=== PATIENT | female | born 1935 | race Caucasian/White ===

== ENCOUNTER 2021-05-26 15:08 | Inpatient (IN) | payer MEDICARE ==
[~2021-05-26] VITALS: Ht 147.3 cm; Wt 46.8 kg
[2021-05-26 15:56] LABS: BASOPHILS % (AUTO) 1.2 % (0.0-2.0); EOSINOPHILS % (AUTO) 2.9 % (1.0-6.0); HEMATOCRIT 29.9 % (36-46); LYMPHOCYTES % (AUTO) 16.5 % (22.0-44.0); MEAN CORPUSCULAR HEMOGLOBIN 26.7 pg (26.0-34.0); MEAN CORPUSCULAR HGB CONC 33.3 G/dL (31.0-37.0); MEAN CORPUSCULAR VOLUME 80 fL (80-100); MONOCYTES # (AUTO) 0.7 K/uL (0.1-1.0); MONOCYTES % (AUTO) 11.3 % (2.0-9.0); NEUTROPHILS % (AUTO) 68.1 % (40.0-70.0); PLATELET COUNT (AUTO) 369 K/uL (150-450); RED BLOOD CELL COUNT(AUTO) 3.72 MIL/uL (4.00-5.20); RED CELL DISTRIBUTION WIDTH 16.6 % (11.5-14.5)
[2021-05-26 16:10] LABS: ANION GAP 8 mmol/L (8-16); CALCIUM, TOTAL 8.8 mg/dL (8.8-10.5); CARBON DIOXIDE 27 mmol/L (22-29); CHLORIDE 104 mmol/L (98-107); CREATININE 0.72 mg/dL (0.60-1.30); GLUCOSE,RANDOM 85 mg/dL (70-110); POTASSIUM 4.1 mmol/L (3.5-5.1); SODIUM SERUM 139 mmol/L (136-145); UREA NITROGEN, BLOOD 21 mg/dL (7-18)
[2021-05-26 16:11] LABS: PROTHROMBIN TIME 10.9 SEC (9.4-11.6)
[2021-05-26 16:16] LABS: ALANINE AMINOTRANSFERASE 13 U/L (12-78); ALBUMIN 2.5 g/dL (3.4-5.0); ALKALINE PHOSPHATASE 100 U/L (46-116); ASPARTATE AMINOTRANSFERASE 17 U/L (15-37); BILIRUBIN,TOTAL 0.2 mg/dL (0.1-1.0); CREATINE KINASE, TOTAL ONLY 42 U/L (26-192); GLOMERULAR FILTR. RATE CALC > 60 mL/min (>60); TOTAL PROTEIN, SERUM 6.8 g/dL (6.4-8.2)
[2021-05-26 16:37] LABS: B-TYPE NATRIURETIC PEPTIDE 82 pg/mL (0-100)
[2021-05-26 16:56] LABS: COVID AG,FIA SOURCE NASOPHARYNGEAL
[2021-05-26] MEDS ORDERED: HYDROCODONE/ACETAMINOPHEN 5-325 MG TABLET PO PRN (20:45)
[2021-05-26] MEDS ORDERED: ONDANSETRON HCL 4 MG/2 ML VIAL IVP PRN (20:45)
[2021-05-26] MEDS ORDERED: BISACODYL 10 MG RECTAL RECTAL SUPPOSITORY PR PRN (20:45)
[2021-05-26] MEDS ORDERED: IPRATROPIUM BROMIDE 0.5 MG/2.5 ML NEB SOLUTION NEB PRN (20:45)
[2021-05-26] MEDS ORDERED: ACETAMINOPHEN 325 MG TABLET PO PRN (20:45)
[2021-05-26] MEDS ORDERED: ALBUTEROL SULFATE 2.5 MG/0.5 ML NEB SOLUTION NEB PRN (20:45)
[2021-05-26] MEDS ORDERED: MORPHINE SULFATE 2 MG/ML SYRINGE IVP PRN (20:45)
[2021-05-26] MEDS ORDERED: MAGNESIUM HYDROXIDE SUSPENSION 30 ML UDCUP PO PRN (20:45)
[2021-05-26] MEDS ORDERED: ZOLPIDEM TARTRATE 5 MG TABLET PO PRN (20:45)
[2021-05-26] MEDS: DOCUSATE SODIUM 100 MG CAPSULE PO SCH ×2 (21:00→21:26)
[2021-05-26] MEDS: HEPARIN SODIUM,PORCINE 5,000 UNITS/ML VIAL SQ SCH (23:52)
[2021-05-27] MEDS: DOCUSATE SODIUM 100 MG CAPSULE PO SCH ×2 (08:59→21:56)
[2021-05-27] MEDS: PANTOPRAZOLE SODIUM 40 MG/VIAL IVP SCH (08:59)
[2021-05-27] MEDS: HEPARIN SODIUM,PORCINE 5,000 UNITS/ML VIAL SQ SCH ×2 (08:59→15:12)
[2021-05-27 21:31] VITALS: BP 153/89
[2021-05-27 23:56] VITALS: BP 117/90
[2021-05-28 05:32] VITALS: BP 126/74
[2021-05-28 07:24] VITALS: BP 132/75
[2021-05-28] MEDS: HEPARIN SODIUM,PORCINE 5,000 UNITS/ML VIAL SQ SCH ×4 (08:11→23:49)
[2021-05-28] MEDS: PANTOPRAZOLE SODIUM 40 MG/VIAL IVP SCH (08:11)
[2021-05-28] MEDS: DOCUSATE SODIUM 100 MG CAPSULE PO SCH ×2 (08:11→21:05)
[2021-05-28 11:24] VITALS: BP 116/67
[2021-05-28 15:33] LABS: EOSINOPHILS % (AUTO) 2.6 % (1.0-6.0); HEMATOCRIT 30.3 % (36-46); HEMOGLOBIN 10.2 g/dL (12.0-16.0); LYMPHOCYTES # (AUTO) 1.4 K/uL (1.0-4.8); LYMPHOCYTES % (AUTO) 21.8 % (22.0-44.0); MEAN CORPUSCULAR HEMOGLOBIN 26.6 pg (26.0-34.0); MEAN CORPUSCULAR HGB CONC 33.7 G/dL (31.0-37.0); MEAN CORPUSCULAR VOLUME 79 fL (80-100); MONOCYTES # (AUTO) 0.8 K/uL (0.1-1.0); MONOCYTES % (AUTO) 12.4 % (2.0-9.0); NEUTROPHILS # (AUTO) 3.9 K/uL (1.8-7.7); NEUTROPHILS % (AUTO) 62.2 % (40.0-70.0); PLATELET COUNT (AUTO) 383 K/uL (150-450); RED BLOOD CELL COUNT(AUTO) 3.85 MIL/uL (4.00-5.20); RED CELL DISTRIBUTION WIDTH 16.6 % (11.5-14.5)
[2021-05-28 15:39] LABS: ANION GAP 7 mmol/L (8-16); CALCIUM, TOTAL 8.8 mg/dL (8.8-10.5); CARBON DIOXIDE 26 mmol/L (22-29); CHLORIDE 103 mmol/L (98-107); CREATININE 0.76 mg/dL (0.60-1.30); GLOMERULAR FILTR. RATE CALC > 60 mL/min (>60); GLUCOSE,RANDOM 108 mg/dL (70-110); POTASSIUM 4.1 mmol/L (3.5-5.1); SODIUM SERUM 136 mmol/L (136-145); UREA NITROGEN, BLOOD 28 mg/dL (7-18)
[2021-05-28 15:46] LABS: ALANINE AMINOTRANSFERASE 15 U/L (12-78); ALBUMIN 2.5 g/dL (3.4-5.0); ALKALINE PHOSPHATASE 89 U/L (46-116); ASPARTATE AMINOTRANSFERASE 17 U/L (15-37); BILIRUBIN,TOTAL 0.3 mg/dL (0.1-1.0); TOTAL PROTEIN, SERUM 7.1 g/dL (6.4-8.2)
[2021-05-28 15:56] VITALS: BP 120/82
[2021-05-28 19:07] VITALS: BP 136/78
[2021-05-29 03:52] VITALS: BP 150/88
[2021-05-29 07:52] VITALS: BP 138/81
[2021-05-29] MEDS: DOCUSATE SODIUM 100 MG CAPSULE PO SCH (09:12)
[2021-05-29] MEDS: HEPARIN SODIUM,PORCINE 5,000 UNITS/ML VIAL SQ SCH (09:13)
[2021-05-29] MEDS: PANTOPRAZOLE SODIUM 40 MG/VIAL IVP SCH (09:13)
[2021-05-29 11:27] VITALS: BP 115/77
== END 2021-05-29 14:00 | disposition home or self-care (01) | DRG 312 ==
LOC: EMS 15:11 → 5S 05-27 19:45
PROVIDERS: ADMIT Hospitalist; ATTEND Hospitalist
DX: R55 Syncope and collapse (principal); E43 Unspecified severe protein-calorie malnutrition; Z20.822 Contact with and (suspected) exposure to COVID-19; F03.90 Unspecified dementia, unspecified severity, without behavioral disturbance, psychotic disturbance, mood disturbance, and anxiety; D64.9 Anemia, unspecified; I10 Essential (primary) hypertension; Z68.21 Body mass index [BMI] 21.0-21.9, adult
CPT/HCPCS: 70450; 70551; 71045; 80053; 82550; 83880; 84484; 85025; 85610; 85730; 93005; 93306; 93880; 96374; 97116; 97161; 99285; C9113; J1644; 36415-L1; 36415-TC

== ENCOUNTER 2022-10-02 12:41 | Emergency (ER) | payer MEDICARE ==
[~2022-10-02] VITALS: Ht 152.4 cm; Wt 51.4 kg
[~2022-10-02 12:41] MED LIST: ATOR10TA69 PO; CHOL200059 PO; ESCI10 PO; LOSA-381 PO; QUET50TA93 PO
[2022-10-02 15:12] LABS: BASOPHILS % (AUTO) 0.4 % (0.0-2.0); EOSINOPHILS % (AUTO) 3.5 % (1.0-6.0); HEMATOCRIT 33.3 % (36-46); HEMOGLOBIN 10.7 g/dL (12.0-16.0); LYMPHOCYTES # (AUTO) 1.2 K/uL (1.0-4.8); LYMPHOCYTES % (AUTO) 14.6 % (22.0-44.0); MEAN CORPUSCULAR HEMOGLOBIN 28.8 pg (26.0-34.0); MEAN CORPUSCULAR HGB CONC 32.2 G/dL (31.0-37.0); MEAN CORPUSCULAR VOLUME 89 fL (80-100); MONOCYTES # (AUTO) 0.8 K/uL (0.1-1.0); MONOCYTES % (AUTO) 9.5 % (2.0-9.0); PLATELET COUNT (AUTO) 239 K/uL (150-450); RED BLOOD CELL COUNT(AUTO) 3.73 MIL/uL (4.00-5.20); RED CELL DISTRIBUTION WIDTH 15.7 % (11.5-14.5)
[2022-10-02 15:24] LABS: ANION GAP 7 mmol/L (8-16); CALCIUM, TOTAL 8.7 mg/dL (8.8-10.5); CARBON DIOXIDE 26 mmol/L (22-29); CHLORIDE 109 mmol/L (98-107); CREATININE 0.82 mg/dL (0.60-1.30); GLOMERULAR FILTR. RATE CALC > 60 mL/min (>60); GLUCOSE,RANDOM 89 mg/dL (70-110); POTASSIUM 4.1 mmol/L (3.5-5.1); SODIUM SERUM 142 mmol/L (136-145)
[2022-10-02 19:15] VITALS: BP 140/73
== END 2022-10-02 19:06 | disposition home or self-care (01) ==
LOC: EMS 12:41
DX: S00.83XA Contusion of other part of head, initial encounter (principal); F03.90 Unspecified dementia, unspecified severity, without behavioral disturbance, psychotic disturbance, mood disturbance, and anxiety; I10 Essential (primary) hypertension; W19.XXXA Unspecified fall, initial encounter; Y93.89 Activity, other specified; Y92.89 Other specified places as the place of occurrence of the external cause; Y99.8 Other external cause status
CPT/HCPCS: 70450; 80048; 85025; 93005; 99284

== ENCOUNTER 2023-01-16 18:54 | Inpatient (IN) | payer MEDICARE ==
[~2023-01-16] VITALS: Ht 157.5 cm; Wt 53.2 kg
[2023-01-16] MEDS ORDERED: 0.9% SODIUM CHLORIDE 10 ML SYRINGE IVP PRN (19:45)
[2023-01-16] MEDS ORDERED: CefTRIAXone 1 GM/DEXTROSE 50 ML IV ONE (19:45)
[2023-01-16] MEDS ORDERED: SODIUM CHLORIDE 0.9% 1,950 ML IV ONE (19:45)
[2023-01-16 20:30] LABS: BASOPHILS % (AUTO) 0.4 % (0.0-2.0); EOSINOPHILS % (AUTO) 0.1 % (1.0-6.0); HEMOGLOBIN 10.9 g/dL (12.0-16.0); LYMPHOCYTES # (AUTO) 0.6 K/uL (1.0-4.8); LYMPHOCYTES % (AUTO) 4.4 % (22.0-44.0); MEAN CORPUSCULAR HEMOGLOBIN 28.3 pg (26.0-34.0); MEAN CORPUSCULAR HGB CONC 32.1 G/dL (31.0-37.0); MEAN CORPUSCULAR VOLUME 88 fL (80-100); MONOCYTES # (AUTO) 0.6 K/uL (0.1-1.0); MONOCYTES % (AUTO) 4.4 % (2.0-9.0); NEUTROPHILS # (AUTO) 12.2 K/uL (1.8-7.7); PLATELET COUNT (AUTO) 215 K/uL (150-450); RED BLOOD CELL COUNT(AUTO) 3.85 MIL/uL (4.00-5.20); RED CELL DISTRIBUTION WIDTH 15.9 % (11.5-14.5); WHITE BLOOD COUNT (AUTO) 13.5 K/uL (4.5-11.0)
[2023-01-16 20:33] LABS: NEUTROPHILS % (AUTO) 90.7 % (40.0-70.0)
[2023-01-16 20:42] LABS: ANION GAP 10 mmol/L (8-16); CARBON DIOXIDE 22 mmol/L (22-29); CHLORIDE 103 mmol/L (98-107); GLOMERULAR FILTR. RATE CALC 52 mL/min (>60); GLUCOSE,RANDOM 145 mg/dL (70-110); INR 1.1 (0.9-1.1); POTASSIUM 3.8 mmol/L (3.5-5.1); SODIUM SERUM 135 mmol/L (136-145); UREA NITROGEN, BLOOD 32 mg/dL (7-18)
[2023-01-16 20:45] LABS: B-TYPE NATRIURETIC PEPTIDE 129 pg/mL (0-100)
[2023-01-16 20:46] LABS: ALANINE AMINOTRANSFERASE 9 U/L (12-78); ALBUMIN 2.7 g/dL (3.4-5.0); ALKALINE PHOSPHATASE 94 U/L (46-116); ASPARTATE AMINOTRANSFERASE 19 U/L (15-37); BILIRUBIN,TOTAL 0.4 mg/dL (0.1-1.0); LACTIC ACID 1.5 mmol/L (0.4-2.0); TOTAL PROTEIN, SERUM 6.4 g/dL (6.4-8.2); TROPONIN I-HIGH SENSITIVITY 15 ng/L (<51)
[2023-01-16 21:10] LABS: RBC MORPHOLOGY COMMENT ABNORMAL RBC MORPH
[2023-01-16] MEDS ORDERED: ONDANSETRON HCL 4 MG/2 ML VIAL IVP PRN (21:15)
[2023-01-16] MEDS ORDERED: ACETAMINOPHEN 325 MG TABLET PO PRN (21:15)
[2023-01-16 21:28] LABS: APPEARANCE,URINE HAZY (CLEAR); BILIRUBIN,URINE NEGATIVE (NEGATIVE); COLOR,URINE YELLOW (YELLOW); GLUCOSE, URINE (UA) NEGATIVE (NEGATIVE); KETONES,URINE NEGATIVE (NEGATIVE); LEUKOCYTE ESTERASE ,URINE MODERATE (NEGATIVE); NITRATE,URINE POSITIVE (NEGATIVE); OCCULT BLOOD,URINE SMALL (NEGATIVE); PH,URINE 5.5 (5.0-8.0); PROTEIN,URINE TRACE mg/dL (NEGATIVE); SPECIFIC GRAVITIY, URINE 1.019 (1.003-1.030); UROBILINOGEN,URINE <=1.0 mg/dL (<=1.0)
[2023-01-16] MEDS: RINGERS SOLUTION,LACTATED 1,000 ML IV SCH (21:42)
[2023-01-16 22:15] LABS: COVID AG,FIA SOURCE NASOPHARYNGEAL
[2023-01-16 22:20] LABS: RBC,URINE 0-2 /HPF (0-2)
[2023-01-16 22:21] LABS: BACTERIA,URINE Few /HPF (None Seen)
[2023-01-16 22:54] LABS: SARS-COV2 (COVID) ANTIGEN,FIA Negative (Negative)
[2023-01-16] MEDS: HEPARIN SODIUM,PORCINE 5,000 UNITS/ML VIAL SQ SCH (23:38)
[2023-01-17] MEDS ORDERED: SODIUM CHLORIDE 0.9% 100 ML ONE (02:08)
[2023-01-17] MEDS ORDERED: IOHEXOL 350 MG/ML 100 ML VIAL ONE (02:08)
[2023-01-17] MEDS: HEPARIN SODIUM,PORCINE 5,000 UNITS/ML VIAL SQ SCH ×3 (08:00→23:28)
[2023-01-17 14:22] VITALS: BP 162/55; PULSE 85; RESP 20; TEMP 98.6
[2023-01-17] MEDS: RINGERS SOLUTION,LACTATED 1,000 ML IV SCH (17:59)
[2023-01-17 20:13] VITALS: BP 148/75; PULSE 84; RESP 19; TEMP 98.2
[2023-01-17] MEDS ORDERED: SODIUM CHLORIDE 0.9% 1,000 ML ONE (21:11)
[2023-01-17] MEDS: CefTRIAXone 1 GM/DEXTROSE 50 ML IV SCH (21:14)
[2023-01-18 00:11] VITALS: BP 143/77; PULSE 87; RESP 17; TEMP 97.4
[2023-01-18 05:58] VITALS: BP 132/86; PULSE 88; RESP 17; TEMP 99.9
[2023-01-18 06:56] LABS: BASOPHILS % (AUTO) 0.6 % (0.0-2.0); EOSINOPHILS % (AUTO) 1.3 % (1.0-6.0); HEMATOCRIT 32.5 % (36-46); HEMOGLOBIN 10.9 g/dL (12.0-16.0); LYMPHOCYTES # (AUTO) 1.2 K/uL (1.0-4.8); LYMPHOCYTES % (AUTO) 12.7 % (22.0-44.0); MEAN CORPUSCULAR HEMOGLOBIN 29.5 pg (26.0-34.0); MEAN CORPUSCULAR HGB CONC 33.6 G/dL (31.0-37.0); MEAN CORPUSCULAR VOLUME 88 fL (80-100); MONOCYTES # (AUTO) 0.6 K/uL (0.1-1.0); MONOCYTES % (AUTO) 6.4 % (2.0-9.0); NEUTROPHILS # (AUTO) 7.3 K/uL (1.8-7.7); PLATELET COUNT (AUTO) 225 K/uL (150-450); RED BLOOD CELL COUNT(AUTO) 3.71 MIL/uL (4.00-5.20); WHITE BLOOD COUNT (AUTO) 9.2 K/uL (4.5-11.0)
[2023-01-18 07:03] LABS: ANION GAP 11 mmol/L (8-16); CALCIUM, TOTAL 8.3 mg/dL (8.8-10.5); CARBON DIOXIDE 23 mmol/L (22-29); CHLORIDE 102 mmol/L (98-107); CREATININE 0.58 mg/dL (0.60-1.30); GLOMERULAR FILTR. RATE CALC > 60 mL/min (>60); GLUCOSE,RANDOM 78 mg/dL (70-110); SODIUM SERUM 136 mmol/L (136-145); UREA NITROGEN, BLOOD 12 mg/dL (7-18)
[2023-01-18] MEDS: HEPARIN SODIUM,PORCINE 5,000 UNITS/ML VIAL SQ SCH ×2 (08:34→16:51)
[2023-01-18 11:32] VITALS: BP 135/87; PULSE 88; RESP 17; TEMP 98.3
[2023-01-18] MEDS ORDERED: LORazepam 2 MG/ML VIAL IVP PRN (11:45)
[2023-01-18] MEDS ORDERED: CARVEDILOL 3.125 MG TABLET PO SCH (11:45)
[2023-01-18] MEDS ORDERED: POTASSIUM CHL 10 MEQ/WATER 50 ML IV PRN (11:45)
[2023-01-18] MEDS: POTASSIUM CHLORIDE 20 MEQ ER TABLET PO PRN (12:27)
[2023-01-18] MEDS ORDERED: DIGOXIN 250 MCG/ML 2 ML AMP IVP ONE (13:00)
[2023-01-18] MEDS: RINGERS SOLUTION,LACTATED 1,000 ML IV SCH (13:05)
[2023-01-18 16:00] VITALS: BP 145/71; PULSE 79; RESP 17; TEMP 98
[2023-01-18] MEDS: ACYCLOVIR 5% 15 GM OINTMENT TP SCH ×2 (19:02→21:58)
[2023-01-18] MEDS: ACYCLOVIR 800 MG TABLET PO SCH ×2 (19:02→21:58)
[2023-01-18] MEDS: CefTRIAXone 1 GM/DEXTROSE 50 ML IV SCH (20:32)
[2023-01-18 20:40] VITALS: BP 154/88; PULSE 90; RESP 18; TEMP 98.6
[2023-01-19] VITALS (8 sets, daily range): BP systolic 123–182; BP diastolic 75–113; PULSE 71–82; RESP 17–18; TEMP 97.8–98.6
[2023-01-19] MEDS: HEPARIN SODIUM,PORCINE 5,000 UNITS/ML VIAL SQ SCH ×3 (00:21→17:06)
[2023-01-19] MEDS ORDERED: AmLODIPine BESYLATE 5 MG TABLET PO ONE (03:45)
[2023-01-19] MEDS: ACYCLOVIR 5% 15 GM OINTMENT TP SCH ×5 (06:22→21:07)
[2023-01-19] MEDS: ACYCLOVIR 800 MG TABLET PO SCH ×5 (06:22→21:06)
[2023-01-19] MEDS: PANTOPRAZOLE SODIUM 40 MG DR TABLET PO SCH (09:00)
[2023-01-19] MEDS: CHOLECALCIFEROL (VIT D3) 2,000 UNITS [50 MCG] TABLET PO SCH (09:11)
[2023-01-19] MEDS: CARVEDILOL 6.25 MG TABLET PO SCH (09:11)
[2023-01-19] MEDS: ATORVASTATIN CALCIUM 10 MG TABLET PO SCH (09:11)
[2023-01-19] MEDS: ESCITALOPRAM OXALATE 10 MG TABLET PO SCH (09:11)
[2023-01-19 11:11] LABS: EOSINOPHILS % (AUTO) 1.5 % (1.0-6.0); HEMATOCRIT 36.7 % (36-46); HEMOGLOBIN 11.9 g/dL (12.0-16.0); LYMPHOCYTES # (AUTO) 1.3 K/uL (1.0-4.8); LYMPHOCYTES % (AUTO) 13.7 % (22.0-44.0); MEAN CORPUSCULAR HEMOGLOBIN 28.4 pg (26.0-34.0); MEAN CORPUSCULAR HGB CONC 32.5 G/dL (31.0-37.0); MEAN CORPUSCULAR VOLUME 87 fL (80-100); MONOCYTES # (AUTO) 0.6 K/uL (0.1-1.0); MONOCYTES % (AUTO) 6.6 % (2.0-9.0); NEUTROPHILS # (AUTO) 7.1 K/uL (1.8-7.7); NEUTROPHILS % (AUTO) 77.2 % (40.0-70.0); PLATELET COUNT (AUTO) 291 K/uL (150-450); RED BLOOD CELL COUNT(AUTO) 4.21 MIL/uL (4.00-5.20); RED CELL DISTRIBUTION WIDTH 15.5 % (11.5-14.5); WHITE BLOOD COUNT (AUTO) 9.2 K/uL (4.5-11.0)
[2023-01-19 11:27] LABS: ANION GAP 9 mmol/L (8-16); CALCIUM, TOTAL 8.8 mg/dL (8.8-10.5); CARBON DIOXIDE 27 mmol/L (22-29); CHLORIDE 100 mmol/L (98-107); CREATININE 0.71 mg/dL (0.60-1.30); GLOMERULAR FILTR. RATE CALC > 60 mL/min (>60); GLUCOSE,RANDOM 160 mg/dL (70-110); POTASSIUM 3.2 mmol/L (3.5-5.1); SODIUM SERUM 136 mmol/L (136-145); UREA NITROGEN, BLOOD 14 mg/dL (7-18)
[2023-01-19 11:36] LABS: TROPONIN I-HIGH SENSITIVITY 55 ng/L (<51)
[2023-01-19] MEDS: POTASSIUM CHLORIDE 20 MEQ ER TABLET PO PRN (14:07)
[2023-01-19] MEDS: CefTRIAXone 1 GM/DEXTROSE 50 ML IV SCH (21:07)
[2023-01-20 00:23] VITALS: BP_SYST 159; BP_SYST 181; BP_DIAS 99; PULSE 80; RESP 18; TEMP 98
[2023-01-20] MEDS: HEPARIN SODIUM,PORCINE 5,000 UNITS/ML VIAL SQ SCH ×3 (00:44→16:57)
[2023-01-20 04:58] VITALS: BP 179/99; PULSE 78; RESP 17; TEMP 98
[2023-01-20] MEDS ORDERED: CloNIDine HCL 0.1 MG TABLET PO PRN (05:30)
[2023-01-20] MEDS: ACYCLOVIR 800 MG TABLET PO SCH ×4 (05:46→16:57)
[2023-01-20] MEDS: ACYCLOVIR 5% 15 GM OINTMENT TP SCH ×4 (05:47→16:57)
[2023-01-20 06:54] VITALS: BP 153/88; RESP 18
[2023-01-20 08:00] VITALS: BP 101/40; PULSE 71; RESP 18; TEMP 97.5
[2023-01-20 08:06] LABS: HERPES SIMPLEX VIRUS-1 BY PCR Negative (Negative); HERPES SIMPLEX VIRUS-2 BY PCR Negative (Negative)
[2023-01-20] MEDS: ATORVASTATIN CALCIUM 10 MG TABLET PO SCH (09:51)
[2023-01-20] MEDS: CARVEDILOL 6.25 MG TABLET PO SCH (09:51)
[2023-01-20] MEDS: ESCITALOPRAM OXALATE 10 MG TABLET PO SCH (09:51)
[2023-01-20] MEDS: PANTOPRAZOLE SODIUM 40 MG DR TABLET PO SCH (09:51)
[2023-01-20] MEDS: CHOLECALCIFEROL (VIT D3) 2,000 UNITS [50 MCG] TABLET PO SCH (09:52)
[2023-01-20 12:00] VITALS: BP 103/73; PULSE 68; RESP 18; TEMP 97.6
[2023-01-20] MEDS ORDERED: ACYC-138 PO (14:55)
[2023-01-20] MEDS ORDERED: LEVO-72 PO (14:55)
[2023-01-20] MEDS ORDERED: APIX2.5T PO (14:55)
[2023-01-20] MEDS ORDERED: ATOR10TA69 PO (14:55)
[2023-01-20] MEDS ORDERED: CARV6 PO (14:55)
[2023-01-20] MEDS ORDERED: ACYC15OI7 TP (14:55)
[2023-01-20 16:00] VITALS: BP 113/76; PULSE 69; RESP 18; TEMP 97.4
== END 2023-01-20 19:44 | disposition home or self-care (01) | DRG 871 ==
LOC: EMS 18:54 → AHU 01-17 02:00 → 5S 01-17 10:44
PROVIDERS: ADMIT Internal Medicine; ATTEND Internal Medicine
DX: A41.9 Sepsis, unspecified organism (principal); E43 Unspecified severe protein-calorie malnutrition; G92.9 Unspecified toxic encephalopathy; N39.0 Urinary tract infection, site not specified; G93.40 Encephalopathy, unspecified; E87.6 Hypokalemia; F03.90 Unspecified dementia, unspecified severity, without behavioral disturbance, psychotic disturbance, mood disturbance, and anxiety; Z20.822 Contact with and (suspected) exposure to COVID-19; R56.9 Unspecified convulsions; I10 Essential (primary) hypertension; Z68.22 Body mass index [BMI] 22.0-22.9, adult; K52.9 Noninfective gastroenteritis and colitis, unspecified; I35.0 Nonrheumatic aortic (valve) stenosis; I48.0 Paroxysmal atrial fibrillation; D64.9 Anemia, unspecified; E78.5 Hyperlipidemia, unspecified; K21.9 Gastro-esophageal reflux disease without esophagitis; Z79.899 Other long term (current) drug therapy
CPT/HCPCS: 51702; 71045; 74177; 80048; 80053; 81001; 83605; 83735; 83880; 84132; 84145; 84484; 85025; 85610; 87040; 87081; 87086; 87186; 87529; 92610; 93005; 93306; 97116; 97162; 97166; 97530; 97535; 99291; J0696; J1160; J1644; J7030; J7050; J7120; Q9967; 36415-L1; 36415-TC

== ENCOUNTER 2023-03-02 18:41 | Inpatient (IN) | payer MEDICARE ==
[~2023-03-02] VITALS: Ht 149.9 cm; Wt 51.0 kg
[~2023-03-02 18:41] MED LIST changes: +APIX2.5T PO; +CARV6 PO; +CIPR500T10 PO; +ESCI-8 PO; -ESCI10 PO; -LOSA-381 PO; -QUET50TA93 PO
[2023-03-02] MEDS ORDERED: 0.9% SODIUM CHLORIDE 10 ML SYRINGE IVP PRN (19:00)
[2023-03-02] MEDS ORDERED: ACETAMINOPHEN 1000 MG/ISO-OSM 100 ML IV ONE (19:00)
[2023-03-02 19:27] LABS: BASOPHILS % (AUTO) 1.2 % (0.0-2.0); EOSINOPHILS % (AUTO) 0.6 % (1.0-6.0); HEMATOCRIT 27.3 % (36-46); LYMPHOCYTES % (AUTO) 15.7 % (22.0-44.0); MEAN CORPUSCULAR HEMOGLOBIN 29.2 pg (26.0-34.0); MEAN CORPUSCULAR HGB CONC 33.1 G/dL (31.0-37.0); MEAN CORPUSCULAR VOLUME 88 fL (80-100); MONOCYTES # (AUTO) 0.7 K/uL (0.1-1.0); MONOCYTES % (AUTO) 11.2 % (2.0-9.0); NEUTROPHILS # (AUTO) 4.4 K/uL (1.8-7.7); NEUTROPHILS % (AUTO) 71.3 % (40.0-70.0); PLATELET COUNT (AUTO) 252 K/uL (150-450); RED CELL DISTRIBUTION WIDTH 16.1 % (11.5-14.5); WHITE BLOOD COUNT (AUTO) 6.1 K/uL (4.5-11.0)
[2023-03-02 19:39] LABS: INR 1.1 (0.9-1.1); PROTHROMBIN TIME 11.4 SEC (9.4-11.6)
[2023-03-02 19:45] LABS: LACTIC ACID 1.1 mmol/L (0.4-2.0)
[2023-03-02 19:49] LABS: ANION GAP 12 mmol/L (8-16); B-TYPE NATRIURETIC PEPTIDE 300 pg/mL (0-100); CALCIUM, TOTAL 7.7 mg/dL (8.8-10.5); CARBON DIOXIDE 22 mmol/L (22-29); CHLORIDE 103 mmol/L (98-107); CREATININE 1.22 mg/dL (0.60-1.30); GLOMERULAR FILTR. RATE CALC 42 mL/min (>60); GLUCOSE,RANDOM 103 mg/dL (70-110); POTASSIUM 3.4 mmol/L (3.5-5.1); SODIUM SERUM 137 mmol/L (136-145); TROPONIN I-HIGH SENSITIVITY 18 ng/L (<51); UREA NITROGEN, BLOOD 20 mg/dL (7-18)
[2023-03-02 19:54] LABS: ALANINE AMINOTRANSFERASE 9 U/L (12-78); ALBUMIN 2.5 g/dL (3.4-5.0); ALKALINE PHOSPHATASE 69 U/L (46-116); ASPARTATE AMINOTRANSFERASE 14 U/L (15-37); BILIRUBIN,TOTAL 0.3 mg/dL (0.1-1.0); CREATINE KINASE, TOTAL ONLY 36 U/L (26-192); TOTAL PROTEIN, SERUM 6.7 g/dL (6.4-8.2)
[2023-03-02 20:08] LABS: COVID AG,FIA SOURCE NASAL SWAB
[2023-03-02 20:10] LABS: APPEARANCE,URINE CLEAR (CLEAR); BILIRUBIN,URINE NEGATIVE (NEGATIVE); COLOR,URINE LIGHT YELLOW (YELLOW); GLUCOSE, URINE (UA) NEGATIVE (NEGATIVE); KETONES,URINE NEGATIVE (NEGATIVE); LEUKOCYTE ESTERASE ,URINE SMALL (NEGATIVE); NITRATE,URINE NEGATIVE (NEGATIVE); OCCULT BLOOD,URINE MODERATE (NEGATIVE); PROTEIN,URINE TRACE mg/dL (NEGATIVE); SPECIFIC GRAVITIY, URINE 1.014 (1.003-1.030); UROBILINOGEN,URINE <=1.0 mg/dL (<=1.0)
[2023-03-02 20:24] LABS: BACTERIA,URINE Rare /HPF (None Seen)
[2023-03-02 20:27] LABS: INFLUENZA TYPE A NEGATIVE FOR TYPE A (NEGATIVE); INFLUENZA TYPE B NEGATIVE FOR TYPE B (NEGATIVE)
[2023-03-02] MEDS ORDERED: CefTRIAXone 1 GM/DEXTROSE 50 ML IV ONE (20:30)
[2023-03-02] MEDS ORDERED: SODIUM CHLORIDE 0.9% 1,550 ML IV ONE (20:30)
[2023-03-02 20:34] LABS: SARS-COV2 (COVID) ANTIGEN,FIA Positive (Negative)
[2023-03-02] MEDS ORDERED: BISACODYL 10 MG RECTAL RECTAL SUPPOSITORY PR PRN (21:00)
[2023-03-02] MEDS: APIXABAN 2.5 MG TABLET PO SCH (21:00)
[2023-03-02] MEDS ORDERED: ONDANSETRON HCL 4 MG/2 ML VIAL IVP PRN (21:00)
[2023-03-02] MEDS ORDERED: HYDROCODONE/ACETAMINOPHEN 5-325 MG TABLET PO PRN (21:00)
[2023-03-02] MEDS ORDERED: ZOLPIDEM TARTRATE 5 MG TABLET PO PRN (21:00)
[2023-03-02] MEDS ORDERED: ACETAMINOPHEN 325 MG TABLET PO PRN (21:00)
[2023-03-02] MEDS ORDERED: MAGNESIUM HYDROXIDE SUSPENSION 30 ML UDCUP PO PRN (21:00)
[2023-03-02] MEDS: DOCUSATE SODIUM 100 MG CAPSULE PO SCH (21:00)
[2023-03-02] MEDS ORDERED: MORPHINE SULFATE 2 MG/ML SYRINGE IVP PRN (21:00)
[2023-03-02] MEDS ORDERED: ZINC50CA3 PO (21:50)
[2023-03-02] MEDS ORDERED: ASPI-1444 PO (21:50)
[2023-03-02] MEDS ORDERED: GUAIF600 PO (21:50)
[2023-03-02] MEDS ORDERED: ACET-2247 PO (21:50)
[2023-03-02] MEDS ORDERED: ZOSY225FZ IV (21:50)
[2023-03-02] MEDS ORDERED: ONDA4VIA60 IVP (21:50)
[2023-03-02] MEDS ORDERED: CLOP75TA60 PO (21:50)
[2023-03-02] MEDS ORDERED: IPRA3AMP24 IH (21:50)
[2023-03-02] MEDS ORDERED: ATOR40TA28 PO (21:50)
[2023-03-02] MEDS ORDERED: REMDESIVIR 200 MG in SODIUM CHLORIDE 0.9% 250 ML IV ONE (22:00)
[2023-03-03 00:20] VITALS: BP 149/70; PULSE 71; RESP 16; TEMP 97.6
[2023-03-03 06:58] LABS: BASOPHILS % (AUTO) 0.9 % (0.0-2.0); EOSINOPHILS % (AUTO) 1.5 % (1.0-6.0); HEMATOCRIT 29.3 % (36-46); HEMOGLOBIN 9.8 g/dL (12.0-16.0); LYMPHOCYTES # (AUTO) 0.9 K/uL (1.0-4.8); LYMPHOCYTES % (AUTO) 12.9 % (22.0-44.0); MEAN CORPUSCULAR HEMOGLOBIN 29.7 pg (26.0-34.0); MEAN CORPUSCULAR HGB CONC 33.5 G/dL (31.0-37.0); MEAN CORPUSCULAR VOLUME 89 fL (80-100); MONOCYTES # (AUTO) 0.8 K/uL (0.1-1.0); MONOCYTES % (AUTO) 11.1 % (2.0-9.0); NEUTROPHILS # (AUTO) 5.3 K/uL (1.8-7.7); NEUTROPHILS % (AUTO) 73.6 % (40.0-70.0); PLATELET COUNT (AUTO) 266 K/uL (150-450); RED CELL DISTRIBUTION WIDTH 16.2 % (11.5-14.5); WHITE BLOOD COUNT (AUTO) 7.2 K/uL (4.5-11.0)
[2023-03-03 07:12] LABS: CALCIUM, TOTAL 7.9 mg/dL (8.8-10.5); CREATININE 1.14 mg/dL (0.60-1.30); POTASSIUM 3.6 mmol/L (3.5-5.1)
[2023-03-03] MEDS: CHOLECALCIFEROL (VIT D3) 2,000 UNITS [50 MCG] TABLET PO SCH (09:00)
[2023-03-03] MEDS: CARVEDILOL 6.25 MG TABLET PO SCH ×2 (09:00→10:13)
[2023-03-03] MEDS: DOCUSATE SODIUM 100 MG CAPSULE PO SCH ×2 (10:00→21:47)
[2023-03-03] MEDS: ATORVASTATIN CALCIUM 10 MG TABLET PO SCH (10:00)
[2023-03-03] MEDS: ESCITALOPRAM OXALATE 10 MG TABLET PO SCH (10:01)
[2023-03-03] MEDS: PANTOPRAZOLE SODIUM 40 MG DR TABLET PO SCH (10:01)
[2023-03-03] MEDS: APIXABAN 2.5 MG TABLET PO SCH ×2 (10:01→21:47)
[2023-03-03 12:33] VITALS: BP 107/59; PULSE 79; RESP 16; TEMP 98.9
[2023-03-03] MEDS: DEXAMETHASONE 4 MG TABLET PO SCH (13:24)
[2023-03-03 17:05] VITALS: BP 151/76; PULSE 76; RESP 16; TEMP 97.5
[2023-03-03 20:30] VITALS: BP 128/88; PULSE 90; RESP 18; TEMP 98
[2023-03-03] MEDS: REMDESIVIR 100 MG in SODIUM CHLORIDE 0.9% 250 ML IV SCH (21:46)
[2023-03-04] VITALS (7 sets, daily range): BP systolic 115–143; BP diastolic 76–90; PULSE 64–78; RESP 14–19; TEMP 97–98.9
[2023-03-04 06:43] LABS: CREATININE 1.15 mg/dL (0.60-1.30); POTASSIUM 3.2 mmol/L (3.5-5.1)
[2023-03-04 06:47] LABS: BASOPHILS % (AUTO) 0.2 % (0.0-2.0); EOSINOPHILS % (AUTO) 0 % (1.0-6.0); HEMOGLOBIN 9.5 g/dL (12.0-16.0); LYMPHOCYTES # (AUTO) 0.9 K/uL (1.0-4.8); LYMPHOCYTES % (AUTO) 10.3 % (22.0-44.0); MEAN CORPUSCULAR HEMOGLOBIN 29.7 pg (26.0-34.0); MEAN CORPUSCULAR VOLUME 87 fL (80-100); MONOCYTES # (AUTO) 0.5 K/uL (0.1-1.0); MONOCYTES % (AUTO) 5.8 % (2.0-9.0); NEUTROPHILS # (AUTO) 7.5 K/uL (1.8-7.7); NEUTROPHILS % (AUTO) 83.7 % (40.0-70.0); PLATELET COUNT (AUTO) 271 K/uL (150-450); RED CELL DISTRIBUTION WIDTH 15.7 % (11.5-14.5)
[2023-03-04] MEDS: DOCUSATE SODIUM 100 MG CAPSULE PO SCH ×2 (09:24→20:13)
[2023-03-04] MEDS: ESCITALOPRAM OXALATE 10 MG TABLET PO SCH (09:25)
[2023-03-04] MEDS: PANTOPRAZOLE SODIUM 40 MG DR TABLET PO SCH (09:25)
[2023-03-04] MEDS: ATORVASTATIN CALCIUM 10 MG TABLET PO SCH (09:25)
[2023-03-04] MEDS: APIXABAN 2.5 MG TABLET PO SCH ×2 (09:25→20:13)
[2023-03-04] MEDS: DEXAMETHASONE 4 MG TABLET PO SCH (09:26)
[2023-03-04] MEDS: CHOLECALCIFEROL (VIT D3) 2,000 UNITS [50 MCG] TABLET PO SCH (09:29)
[2023-03-04] MEDS ORDERED: POTASSIUM CHLORIDE 20 MEQ ER TABLET PO PRN (12:15)
[2023-03-04] MEDS ORDERED: POTASSIUM CHL 10 MEQ/WATER 50 ML IV PRN (12:15)
[2023-03-04] MEDS: REMDESIVIR 100 MG in SODIUM CHLORIDE 0.9% 250 ML IV SCH (20:13)
[2023-03-04] MEDS: CARVEDILOL 6.25 MG TABLET PO SCH (20:13)
[2023-03-04] MEDS ORDERED: SODIUM CHLORIDE 0.9% 500 ML IV ONE (20:17)
[2023-03-05 05:28] VITALS: BP 141/81; PULSE 73; RESP 18; TEMP 98.3
[2023-03-05 06:44] LABS: BASOPHILS % (AUTO) 0.2 % (0.0-2.0); EOSINOPHILS % (AUTO) 0 % (1.0-6.0); HEMATOCRIT 28.8 % (36-46); HEMOGLOBIN 9.5 g/dL (12.0-16.0); LYMPHOCYTES # (AUTO) 1.8 K/uL (1.0-4.8); LYMPHOCYTES % (AUTO) 13.8 % (22.0-44.0); MEAN CORPUSCULAR HEMOGLOBIN 28.9 pg (26.0-34.0); MEAN CORPUSCULAR HGB CONC 33.1 G/dL (31.0-37.0); MEAN CORPUSCULAR VOLUME 87 fL (80-100); MONOCYTES # (AUTO) 1.1 K/uL (0.1-1.0); MONOCYTES % (AUTO) 8.4 % (2.0-9.0); NEUTROPHILS # (AUTO) 9.9 K/uL (1.8-7.7); NEUTROPHILS % (AUTO) 77.6 % (40.0-70.0); PLATELET COUNT (AUTO) 296 K/uL (150-450); RED BLOOD CELL COUNT(AUTO) 3.31 MIL/uL (4.00-5.20); WHITE BLOOD COUNT (AUTO) 12.8 K/uL (4.5-11.0)
[2023-03-05 07:10] LABS: ALBUMIN 2.4 g/dL (3.4-5.0); BILIRUBIN,TOTAL 0.2 mg/dL (0.1-1.0); CALCIUM, TOTAL 8.7 mg/dL (8.8-10.5); CREATININE 1.13 mg/dL (0.60-1.30); POTASSIUM 3.8 mmol/L (3.5-5.1); TOTAL PROTEIN, SERUM 6.5 g/dL (6.4-8.2)
[2023-03-05 08:27] VITALS: BP 159/80; PULSE 68; RESP 19; TEMP 98.7
[2023-03-05] MEDS: ESCITALOPRAM OXALATE 10 MG TABLET PO SCH (09:00)
[2023-03-05] MEDS: CHOLECALCIFEROL (VIT D3) 2,000 UNITS [50 MCG] TABLET PO SCH (09:00)
[2023-03-05] MEDS: APIXABAN 2.5 MG TABLET PO SCH ×2 (09:00→20:37)
[2023-03-05] MEDS: DEXAMETHASONE 4 MG TABLET PO SCH (09:03)
[2023-03-05] MEDS: PANTOPRAZOLE SODIUM 40 MG DR TABLET PO SCH (09:03)
[2023-03-05] MEDS: ATORVASTATIN CALCIUM 10 MG TABLET PO SCH (09:03)
[2023-03-05] MEDS: DOCUSATE SODIUM 100 MG CAPSULE PO SCH ×2 (09:03→20:38)
[2023-03-05 16:29] VITALS: BP 135/64; PULSE 69; RESP 18; TEMP 98.7
[2023-03-05 20:20] VITALS: BP 132/78; PULSE 67; RESP 20; TEMP 98.5
[2023-03-05] MEDS ORDERED: SODIUM CHLORIDE 0.9% 500 ML IV ONE (20:20)
[2023-03-05] MEDS: REMDESIVIR 100 MG in SODIUM CHLORIDE 0.9% 250 ML IV SCH (20:37)
[2023-03-06 04:39] VITALS: BP 146/69; PULSE 67; RESP 20; TEMP 98.7
[2023-03-06 08:55] VITALS: BP 170/76; PULSE 73; RESP 19; TEMP 98
[2023-03-06] MEDS: PANTOPRAZOLE SODIUM 40 MG DR TABLET PO SCH (08:58)
[2023-03-06] MEDS: ATORVASTATIN CALCIUM 10 MG TABLET PO SCH (08:59)
[2023-03-06] MEDS: CHOLECALCIFEROL (VIT D3) 2,000 UNITS [50 MCG] TABLET PO SCH (08:59)
[2023-03-06] MEDS: ESCITALOPRAM OXALATE 10 MG TABLET PO SCH (08:59)
[2023-03-06] MEDS: CARVEDILOL 6.25 MG TABLET PO SCH (08:59)
[2023-03-06] MEDS: DOCUSATE SODIUM 100 MG CAPSULE PO SCH ×2 (08:59→20:58)
[2023-03-06] MEDS: APIXABAN 2.5 MG TABLET PO SCH ×2 (08:59→20:58)
[2023-03-06] MEDS: DEXAMETHASONE 4 MG TABLET PO SCH (08:59)
[2023-03-06] MEDS ORDERED: ATOR10TA69 PO (10:19)
[2023-03-06] MEDS ORDERED: DEXA4 PO (10:19)
[2023-03-06 17:09] VITALS: BP 155/72; PULSE 68; RESP 19; TEMP 98.2
[2023-03-06 20:48] VITALS: BP 160/78; PULSE 66; RESP 20; TEMP 97.6
[2023-03-06] MEDS: REMDESIVIR 100 MG in SODIUM CHLORIDE 0.9% 250 ML IV SCH (20:58)
[2023-03-07 04:39] VITALS: BP 155/104; PULSE 69; RESP 20; TEMP 97.6
[2023-03-07] MEDS: CARVEDILOL 6.25 MG TABLET PO SCH (06:35)
[2023-03-07 06:43] VITALS: BP 145/74; PULSE 80; RESP 20; TEMP 98
[2023-03-07 08:05] VITALS: BP 148/72; PULSE 78; RESP 18; TEMP 98.1
[2023-03-07] MEDS: DEXAMETHASONE 4 MG TABLET PO SCH (08:21)
[2023-03-07] MEDS: DOCUSATE SODIUM 100 MG CAPSULE PO SCH (08:21)
[2023-03-07] MEDS: ESCITALOPRAM OXALATE 10 MG TABLET PO SCH (08:22)
[2023-03-07] MEDS: ATORVASTATIN CALCIUM 10 MG TABLET PO SCH (08:22)
[2023-03-07] MEDS: PANTOPRAZOLE SODIUM 40 MG DR TABLET PO SCH (08:22)
[2023-03-07] MEDS: APIXABAN 2.5 MG TABLET PO SCH (08:22)
[2023-03-07] MEDS: CHOLECALCIFEROL (VIT D3) 2,000 UNITS [50 MCG] TABLET PO SCH (08:22)
[2023-03-07 17:02] VITALS: BP 146/77; PULSE 77; RESP 19; TEMP 98.4
== END 2023-03-07 18:43 | disposition home health service (06) | DRG 177 ==
LOC: EMS 18:43 → 5S 22:35 → 6N 03-04 21:56
PROVIDERS: ADMIT Internal Medicine; ATTEND Internal Medicine
PROC: XW033E5 Introduction of Remdesivir Anti-infective into Peripheral Vein, Percutaneous Approach, New Technology Group 5 (ICD-10-PCS; principal; 2023-03-02)
DX: U07.1 COVID-19 (principal); J12.82 Pneumonia due to coronavirus disease 2019; J96.91 Respiratory failure, unspecified with hypoxia; N39.0 Urinary tract infection, site not specified; E87.1 Hypo-osmolality and hyponatremia; E44.0 Moderate protein-calorie malnutrition; I10 Essential (primary) hypertension; E78.5 Hyperlipidemia, unspecified; I48.91 Unspecified atrial fibrillation; F03.90 Unspecified dementia, unspecified severity, without behavioral disturbance, psychotic disturbance, mood disturbance, and anxiety; D64.9 Anemia, unspecified; E87.6 Hypokalemia; Z68.22 Body mass index [BMI] 22.0-22.9, adult; Z79.899 Other long term (current) drug therapy; Z79.01 Long term (current) use of anticoagulants; Z87.440 Personal history of urinary (tract) infections; Z79.82 Long term (current) use of aspirin; Z79.02 Long term (current) use of antithrombotics/antiplatelets
CPT/HCPCS: 51702; 71045; 80048; 80053; 81001; 82550; 83605; 83880; 84132; 84145; 84484; 85025; 85610; 85730; 87040; 87081; 87086; 87186; 87804; 92610; 93005; 99285; J0131; J0696; J7030; J7040; J7050; J8540; Q9967; 36415-L1; 36415-TC

== ENCOUNTER 2023-07-17 17:46 | Inpatient (IN) | payer MEDICARE ==
[~2023-07-17] VITALS: Ht 154.9 cm; Wt 51.4 kg
[2023-07-17] VITALS (7 sets, daily range): BP systolic 94–129; BP diastolic 55–64; PULSE 79–86; RESP 17–18; TEMP 98.1–98.4
[~2023-07-17 17:46] MED LIST changes: +ACET-2247 PO; +ASPI-1444 PO; -CIPR500T10 PO; +CLOP75TA60 PO; +DEXA4 PO; +GUAIF600 PO; +IPRA3AMP24 IH; +ONDA4VIA60 IVP; +ZINC50CA3 PO
[2023-07-17 18:26] LABS: EOSINOPHILS % (AUTO) 4.2 % (1.0-6.0); MEAN CORPUSCULAR HEMOGLOBIN 22.8 pg (26.0-34.0); MEAN CORPUSCULAR VOLUME 74 fL (80-100); MONOCYTES # (AUTO) 0.6 K/uL (0.1-1.0); MONOCYTES % (AUTO) 10.1 % (2.0-9.0); NEUTROPHILS # (AUTO) 4.3 K/uL (1.8-7.7); NEUTROPHILS % (AUTO) 68.7 % (40.0-70.0); PLATELET COUNT (AUTO) 329 K/uL (150-450); RED BLOOD CELL COUNT(AUTO) 2.47 MIL/uL (4.00-5.20); RED CELL DISTRIBUTION WIDTH 19.1 % (11.5-14.5); WHITE BLOOD COUNT (AUTO) 6.2 K/uL (4.5-11.0)
[2023-07-17 18:29] LABS: HEMATOCRIT 18.2 % (36-46); HEMOGLOBIN 5.7 g/dL (12.0-16.0)
[2023-07-17 18:31] LABS: CALCIUM, TOTAL 8.8 mg/dL (8.8-10.5); CREATININE 1.09 mg/dL (0.60-1.30); POTASSIUM 4.1 mmol/L (3.5-5.1)
[2023-07-17 18:34] LABS: ALBUMIN 2.8 g/dL (3.4-5.0); BILIRUBIN,TOTAL 0.2 mg/dL (0.1-1.0); TOTAL PROTEIN, SERUM 6.6 g/dL (6.4-8.2)
[2023-07-17 18:57] LABS: COVID AG,FIA SOURCE NASAL SWAB
[2023-07-17 18:58] LABS: PROTHROMBIN TIME 10.5 SEC (9.4-11.6)
[2023-07-17 19:04] LABS: SARS-COV2 (COVID) ANTIGEN,FIA Negative (Negative)
[2023-07-17 19:06] LABS: RBC MORPHOLOGY COMMENT ABNORMAL RBC MORPH
[2023-07-17 19:07] LABS: PATHOLOGY REVIEW, DIFF YES
[2023-07-17] MEDS ORDERED: SODIUM CHLORIDE 0.9% 250 ML IV ONE (19:11)
[2023-07-17] MEDS ORDERED: PANTOPRAZOLE SODIUM 40 MG/VIAL IVP ONE (19:15)
[2023-07-17] MEDS ORDERED: ONDANSETRON HCL 4 MG/2 ML VIAL IVP PRN (19:15)
[2023-07-17 19:34] LABS: TROPONIN I-HIGH SENSITIVITY 7 ng/L (<51)
[2023-07-17] MEDS: PANTOPRAZOLE SODIUM 40 MG/VIAL IVP ONE (19:41)
[2023-07-17] MEDS: SODIUM CHLORIDE 0.9% 1,000 ML IV SCH (19:41)
[2023-07-17 19:42] LABS: % IRON SATURATION 5.2 % (22-44)
[2023-07-17] MEDS: PANTOPRAZOLE SODIUM 80 MG in SODIUM CHLORIDE 0.9% 100 ML IV SCH (20:30)
[2023-07-17] MEDS: DOCUSATE SODIUM 100 MG CAPSULE PO SCH (21:00)
[2023-07-17] MEDS: SODIUM CHLORIDE 0.9% 500 ML IV ONE (22:30)
[2023-07-18] VITALS (15 sets, daily range): BP systolic 103–156; BP diastolic 52–93; PULSE 81–94; RESP 17–19; TEMP 97.8–98.9
[2023-07-18] MEDS: HALOPERIDOL LACTATE 5 MG/ML VIAL IM ONE (00:32)
[2023-07-18 01:19] LABS: LYMPHOCYTES # (AUTO) 1.1 K/uL (1.0-4.8); MEAN CORPUSCULAR HGB CONC 31.6 G/dL (31.0-37.0)
[2023-07-18 01:28] LABS: BASOPHILS % (AUTO) 0.6 % (0.0-2.0); EOSINOPHILS % (AUTO) 2.2 % (1.0-6.0); LYMPHOCYTES % (AUTO) 14.1 % (22.0-44.0); MEAN CORPUSCULAR HEMOGLOBIN 23.8 pg (26.0-34.0); MEAN CORPUSCULAR VOLUME 75 fL (80-100); MONOCYTES # (AUTO) 0.8 K/uL (0.1-1.0); MONOCYTES % (AUTO) 9.7 % (2.0-9.0); NEUTROPHILS # (AUTO) 5.9 K/uL (1.8-7.7); NEUTROPHILS % (AUTO) 73.4 % (40.0-70.0); PLATELET COUNT (AUTO) 295 K/uL (150-450); RED BLOOD CELL COUNT(AUTO) 2.66 MIL/uL (4.00-5.20); RED CELL DISTRIBUTION WIDTH 19.8 % (11.5-14.5)
[2023-07-18 01:42] LABS: TROPONIN I-HIGH SENSITIVITY 9 ng/L (<51)
[2023-07-18 01:44] LABS: HEMATOCRIT 20.1 % (36-46); HEMOGLOBIN 6.3 g/dL (12.0-16.0)
[2023-07-18 01:57] LABS: RBC MORPHOLOGY COMMENT ABNORMAL RBC MORPH
[2023-07-18] MEDS: CefTRIAXone 1 GM/DEXTROSE 50 ML IV SCH (05:55)
[2023-07-18] MEDS: PANTOPRAZOLE SODIUM 80 MG in SODIUM CHLORIDE 0.9% 100 ML IV SCH (05:56)
[2023-07-18 08:00] LABS: BASOPHILS % (AUTO) 0.7 % (0.0-2.0); EOSINOPHILS % (AUTO) 3.4 % (1.0-6.0); HEMATOCRIT 26.5 % (36-46); HEMOGLOBIN 8.7 g/dL (12.0-16.0); LYMPHOCYTES # (AUTO) 1.2 K/uL (1.0-4.8); LYMPHOCYTES % (AUTO) 12.8 % (22.0-44.0); MEAN CORPUSCULAR HEMOGLOBIN 25.3 pg (26.0-34.0); MEAN CORPUSCULAR HGB CONC 32.8 G/dL (31.0-37.0); MEAN CORPUSCULAR VOLUME 77 fL (80-100); MONOCYTES # (AUTO) 0.7 K/uL (0.1-1.0); MONOCYTES % (AUTO) 7.6 % (2.0-9.0); NEUTROPHILS # (AUTO) 6.8 K/uL (1.8-7.7); NEUTROPHILS % (AUTO) 75.5 % (40.0-70.0); PLATELET COUNT (AUTO) 285 K/uL (150-450); RED BLOOD CELL COUNT(AUTO) 3.43 MIL/uL (4.00-5.20); RED CELL DISTRIBUTION WIDTH 19.2 % (11.5-14.5)
[2023-07-18 08:15] LABS: ANION GAP 11 mmol/L (8-16); CARBON DIOXIDE 23 mmol/L (22-29); CHLORIDE 106 mmol/L (98-107); CREATININE 0.86 mg/dL (0.60-1.30); GLUCOSE,RANDOM 93 mg/dL (70-110); POTASSIUM 4.1 mmol/L (3.5-5.1); SODIUM SERUM 139 mmol/L (136-145); UREA NITROGEN, BLOOD 29 mg/dL (7-18)
[2023-07-18 08:16] LABS: CALCIUM, TOTAL 8.9 mg/dL (8.8-10.5); GLOMERULAR FILTR. RATE CALC > 60 mL/min (>60)
[2023-07-18 08:37] LABS: RBC MORPHOLOGY COMMENT ABNORMAL RBC MORPH
[2023-07-18 11:59] LABS: BASOPHILS % (AUTO) 1.2 % (0.0-2.0); EOSINOPHILS % (AUTO) 4.1 % (1.0-6.0); HEMATOCRIT 25.4 % (36-46); HEMOGLOBIN 8.3 g/dL (12.0-16.0); LYMPHOCYTES # (AUTO) 1.3 K/uL (1.0-4.8); LYMPHOCYTES % (AUTO) 15.9 % (22.0-44.0); MEAN CORPUSCULAR HEMOGLOBIN 25.2 pg (26.0-34.0); MEAN CORPUSCULAR HGB CONC 32.6 G/dL (31.0-37.0); MEAN CORPUSCULAR VOLUME 77 fL (80-100); MONOCYTES # (AUTO) 0.6 K/uL (0.1-1.0); MONOCYTES % (AUTO) 7.4 % (2.0-9.0); NEUTROPHILS # (AUTO) 5.7 K/uL (1.8-7.7); NEUTROPHILS % (AUTO) 71.4 % (40.0-70.0); PLATELET COUNT (AUTO) 294 K/uL (150-450); RED CELL DISTRIBUTION WIDTH 19.5 % (11.5-14.5); WHITE BLOOD COUNT (AUTO) 7.9 K/uL (4.5-11.0)
[2023-07-18] MEDS ORDERED: SODIUM CHLORIDE 0.9% 1,000 ML ONE (12:09)
[2023-07-18 12:17] LABS: APPEARANCE,URINE HAZY (CLEAR); BILIRUBIN,URINE NEGATIVE (NEGATIVE); COLOR,URINE LIGHT YELLOW (YELLOW); GLUCOSE, URINE (UA) NEGATIVE (NEGATIVE); KETONES,URINE NEGATIVE (NEGATIVE); LEUKOCYTE ESTERASE ,URINE SMALL (NEGATIVE); NITRATE,URINE POSITIVE (NEGATIVE); OCCULT BLOOD,URINE SMALL (NEGATIVE); PROTEIN,URINE NEGATIVE (NEGATIVE); UROBILINOGEN,URINE <=1.0 mg/dL (<=1.0)
[2023-07-18 12:23] LABS: BACTERIA,URINE Many /HPF (None Seen)
[2023-07-18 13:41] LABS: RBC MORPHOLOGY COMMENT ABNORMAL RBC MORPH
[2023-07-18 17:57] LABS: BASOPHILS % (AUTO) 1.6 % (0.0-2.0); EOSINOPHILS % (AUTO) 4.4 % (1.0-6.0); HEMATOCRIT 24.5 % (36-46); HEMOGLOBIN 7.8 g/dL (12.0-16.0); LYMPHOCYTES # (AUTO) 1.4 K/uL (1.0-4.8); LYMPHOCYTES % (AUTO) 19.3 % (22.0-44.0); MEAN CORPUSCULAR HEMOGLOBIN 24.6 pg (26.0-34.0); MEAN CORPUSCULAR HGB CONC 31.9 G/dL (31.0-37.0); MEAN CORPUSCULAR VOLUME 77 fL (80-100); MONOCYTES # (AUTO) 0.5 K/uL (0.1-1.0); MONOCYTES % (AUTO) 7.5 % (2.0-9.0); NEUTROPHILS # (AUTO) 4.8 K/uL (1.8-7.7); NEUTROPHILS % (AUTO) 67.2 % (40.0-70.0); PLATELET COUNT (AUTO) 281 K/uL (150-450); RED BLOOD CELL COUNT(AUTO) 3.18 MIL/uL (4.00-5.20); RED CELL DISTRIBUTION WIDTH 19.8 % (11.5-14.5); WHITE BLOOD COUNT (AUTO) 7.2 K/uL (4.5-11.0)
[2023-07-18 17:58] LABS: RBC MORPHOLOGY COMMENT ABNORMAL RBC MORPH
[2023-07-18] MEDS: PANTOPRAZOLE SODIUM 40 MG/VIAL IVP SCH (19:55)
[2023-07-19] VITALS (8 sets, daily range): BP systolic 128–154; BP diastolic 65–93; PULSE 79–95; RESP 16–19; TEMP 97.5–98.7
[2023-07-19 00:16] LABS: BASOPHILS % (AUTO) 1.2 % (0.0-2.0); EOSINOPHILS % (AUTO) 5.9 % (1.0-6.0); HEMATOCRIT 23.8 % (36-46); HEMOGLOBIN 7.8 g/dL (12.0-16.0); LYMPHOCYTES # (AUTO) 1.2 K/uL (1.0-4.8); LYMPHOCYTES % (AUTO) 16.8 % (22.0-44.0); MEAN CORPUSCULAR HGB CONC 32.8 G/dL (31.0-37.0); MEAN CORPUSCULAR VOLUME 76 fL (80-100); MONOCYTES # (AUTO) 0.8 K/uL (0.1-1.0); MONOCYTES % (AUTO) 10.5 % (2.0-9.0); NEUTROPHILS # (AUTO) 4.8 K/uL (1.8-7.7); NEUTROPHILS % (AUTO) 65.6 % (40.0-70.0); PLATELET COUNT (AUTO) 282 K/uL (150-450); RED BLOOD CELL COUNT(AUTO) 3.11 MIL/uL (4.00-5.20); RED CELL DISTRIBUTION WIDTH 19.7 % (11.5-14.5); WHITE BLOOD COUNT (AUTO) 7.3 K/uL (4.5-11.0)
[2023-07-19] MEDS ORDERED: LIDOCAINE/PF 2% 5 ML VIAL IM ONE (06:42)
[2023-07-19] MEDS ORDERED: PROPOFOL 1% 20 ML VIAL IVP ONE (06:42)
[2023-07-20 01:05] VITALS: BP 158/91; PULSE 79; RESP 18; TEMP 98.8
[2023-07-20 05:11] VITALS: BP 151/76; PULSE 84; RESP 18; TEMP 98.3
[2023-07-20 07:10] LABS: BASOPHILS % (AUTO) 1.4 % (0.0-2.0); EOSINOPHILS % (AUTO) 4.9 % (1.0-6.0); HEMOGLOBIN 8.4 g/dL (12.0-16.0); LYMPHOCYTES # (AUTO) 1.1 K/uL (1.0-4.8); LYMPHOCYTES % (AUTO) 16.6 % (22.0-44.0); MEAN CORPUSCULAR HEMOGLOBIN 25.1 pg (26.0-34.0); MEAN CORPUSCULAR HGB CONC 32.2 G/dL (31.0-37.0); MEAN CORPUSCULAR VOLUME 78 fL (80-100); MONOCYTES # (AUTO) 0.8 K/uL (0.1-1.0); MONOCYTES % (AUTO) 11.2 % (2.0-9.0); NEUTROPHILS # (AUTO) 4.5 K/uL (1.8-7.7); NEUTROPHILS % (AUTO) 65.9 % (40.0-70.0); PLATELET COUNT (AUTO) 313 K/uL (150-450); RED BLOOD CELL COUNT(AUTO) 3.33 MIL/uL (4.00-5.20); RED CELL DISTRIBUTION WIDTH 19.9 % (11.5-14.5); WHITE BLOOD COUNT (AUTO) 6.9 K/uL (4.5-11.0)
[2023-07-20 07:17] LABS: ANION GAP 13 mmol/L (8-16); CALCIUM, TOTAL 8.3 mg/dL (8.8-10.5); CARBON DIOXIDE 22 mmol/L (22-29); CHLORIDE 104 mmol/L (98-107); CREATININE 0.72 mg/dL (0.60-1.30); GLOMERULAR FILTR. RATE CALC > 60 mL/min (>60); GLUCOSE,RANDOM 97 mg/dL (70-110); POTASSIUM 3.6 mmol/L (3.5-5.1); SODIUM SERUM 139 mmol/L (136-145); UREA NITROGEN, BLOOD 16 mg/dL (7-18)
[2023-07-20 09:08] VITALS: BP 142/74; PULSE 76; RESP 19; TEMP 98
[2023-07-20 13:25] VITALS: BP 138/72; PULSE 78; RESP 18; TEMP 98.1
[2023-07-20] MEDS ORDERED: PANT-31 PO (15:21)
[2023-07-20 16:55] VITALS: BP 139/92; PULSE 84; RESP 18; TEMP 98
== END 2023-07-20 20:00 | disposition home or self-care (01) | DRG 377 ==
LOC: EMS 17:47 → 5S 19:11
PROVIDERS: ADMIT Internal Medicine; ATTEND Internal Medicine
PROC: 30233N1 Transfusion of Nonautologous Red Blood Cells into Peripheral Vein, Percutaneous Approach (ICD-10-PCS; 2023-07-18)
PROC: 0DB78ZX Excision of Stomach, Pylorus, Via Natural or Artificial Opening Endoscopic, Diagnostic (ICD-10-PCS; 2023-07-18)
PROC: 0DB68ZX Excision of Stomach, Via Natural or Artificial Opening Endoscopic, Diagnostic (ICD-10-PCS; 2023-07-18)
PROC: 0DB98ZX Excision of Duodenum, Via Natural or Artificial Opening Endoscopic, Diagnostic (ICD-10-PCS; principal; 2023-07-18 13:00)
DX: K29.61 Other gastritis with bleeding (principal); E43 Unspecified severe protein-calorie malnutrition; G93.41 Metabolic encephalopathy; D62 Acute posthemorrhagic anemia; I50.32 Chronic diastolic (congestive) heart failure; I35.0 Nonrheumatic aortic (valve) stenosis; R79.89 Other specified abnormal findings of blood chemistry; I11.0 Hypertensive heart disease with heart failure; Z20.822 Contact with and (suspected) exposure to COVID-19; F03.90 Unspecified dementia, unspecified severity, without behavioral disturbance, psychotic disturbance, mood disturbance, and anxiety; Z68.21 Body mass index [BMI] 21.0-21.9, adult; E78.5 Hyperlipidemia, unspecified; I48.91 Unspecified atrial fibrillation
CPT/HCPCS: 70450; 71045; 80048; 80053; 81001; 82271; 82550; 83540; 83550; 83690; 83735; 83880; 84484; 85025; 85045; 85610; 85730; 86850; 86900; 86901; 86923; 87086; 87186; 87481; 88305; 93005; 99291; C9113; J0696; J1630; J2704; J3490; J7030; J7040; J7050; P9016; 36415-L1; 36415-TC